=== PATIENT | female | born 1950 | race Asian ===

== ENCOUNTER 2017-03-02 20:08 | Emergency (ER) | payer MEDICAID ==
[2017-03-02 20:20] VITALS: RESP 16
--- NOTE | 2017-03-02 20:31 | EDPHY ---
H & P Stated Complaint: R sided numbness episode yesterday and 3 weeks ago. Time Seen by Provider: 03/02/17 20:14 HPI/ROS: This patient presents by private vehicle with her daughter who translates and explains that patient had right-sided numbness arms leg and face yesterday for 10 minutes at rest that has since resolved. She had a similar episode 3-4 weeks ago the last few minutes and resolved without intervention. The patient denies any other neurological symptoms otherwise feels well. Prior to a month ago she never had episodes of numbness before. She denies any other associated neurologic symptoms or other complaints. ROS: Constitutional: No fevers or chills. HEENT: No recent URI symptoms. Neuro: No headaches. No visual changes. No focal weakness. No difficulty speaking. No confusion. Pulmonary: No cough shortness of breath Cardiovascular: No chest pain or heart palpitations GI: No abdominal pain nausea or vomiting : No symptoms Integumentary: No skin complaints Endocrine: No complaints Complete review of symptoms is otherwise negative. Source: Patient, Family Exam Limitations: Language barrier (Patient's daughter translates Cantonese ) - Personal History Current Tetanus Diphtheria and Acellular Pertussis (TDAP): Yes - Medical/Surgical History PMH: Hypertension Hx Asthma: No Hx Chronic Respiratory Disease: No Hx Diabetes: No Hx Cardiac Disease: Yes Hx Renal Disease: No Hx Cirrhosis: No Hx Alcoholism: No Hx HIV/AIDS: No Hx Splenectomy or Spleen Trauma: No Other PMH: HTN, high cholesterol - Family History Significant Family History: No pertinent family hx - Social History Smoking Status: Never smoked Alcohol Use: None Drug Use: None - Physical Exam Exam: Physical exam: Vital signs are normal General: Patient is in no acute distress. HEENT: Is no external evidence of trauma on exam. Nose atraumatic. Ears: Clear bilaterally with no hemotympanum. Oropharynx: No dental trauma or malocclusion. No intraoral lacerations. Eyes: Pupils are equal and reactive to light. Extraocular motions are intact. Optic fundi: Clear with no papilledema or hemorrhage. Neck: Trachea is midline with no stridor. The patient has no midline neck tenderness and retains a full range of motion without increase in pain. Lungs: Clear to auscultation bilaterally Cardiac: Regular rate and rhythm no murmur gallop or rub. No carotid bruits are appreciated. Chest: Nontender. Abdomen: Soft nontender no organomegaly Back: Nontender Extremities: Atraumatic Neuro: GCS of 15. Cranial nerves II through XII intact. Cerebellar exam is normal as judged by symmetric rapid hand movements bilaterally. No pronator drift. No sensory or motor deficits are appreciated. NIH stroke scale of 0 Initial differential diagnosis: [employer] lesion, TIA, stroke, demyelinating disease , electrolyte disorder, anxiety, thyroid disease Constitutional: Initial Vital Signs Temperature (C) 36.7 C 03/02/17 20:18 Heart Rate 92 03/02/17 20:18 Respiratory Rate 16 03/02/17 20:18 Blood Pressure 157/83 H 03/02/17 20:18 O2 Sat (%) 96 03/02/17 20:18 O2 Delivery Mode Room Air Allergies/Adverse Reactions: No Known Allergies Allergy (Unverified 03/02/17 20:17) Home Medications: Medication Instructions Recorded Bp Med 03/02/17 Cholesterol Med 03/02/17 Medical Decision Making - Diagnostics EKG Interpretation: 12 lead EKG performed at 8:29 p.m. Indication numbness tingling, rule out cardiac dysrhythmia or other abnormalities Sinus rhythm at 76 Intervals: Normal throughout [place]: Normal throughout ST segments: Normal throughout Overall assessment normal EKG. Please refer to trace master for complete read. ED Course/Re-evaluation: Patient remained stable here without any active neuro symptoms. I spoke with Dr. Kareem Champion from [facility] in consult and he feels that since the patient had 2 episodes of right arm and leg numbness within a month and has history of hypertension and dyslipidemia, that she warrants admission and acute workup of TIA. I explained TIA and the plan in detail to the patient via her daughter translating and the patient refuses admission. She signed the AMA form declining admission and acute w/u understanding the risk of stroke and in delaying this workup. I explained the importance of close follow-up to complete a TIA workup including echocardiogram, & MRI and other possible studies as deemed by her care aide or neurologist. The pt's daughter will call her mother's primary care physician to facilitate this this week, or if unable to get in this week, she will call our outpatient on-call physician to arrange closer f/u (number provided) At the time of discharge, Mrs Serrano remains asymptomatic. She will continue her current medications including baby aspirin with close follow-up as described above. She understands the need to return emergency department if she has any significant recurrence of neuro symptoms prior to completing her workup as an outpatient. - Data Points Laboratory Results: Laboratory Results 03/02/17 20:40 03/02/17 20:40 Departure - Departure Disposition: Against Medical Advice Clinical Impression: TIA (transient ischemic attack) Condition: Good Instructions: Transient Ischemic Attack (ED) Additional Instructions: Diagnosis: Transient ischemic attack Plan: We suggested admission to the hospital for an MRI of the brain and an echocardiogram of the heart for further evaluation. You declined this admission. You should contact your primary care physician or the primary care physician listed below to arrange close follow-up appointment for an MRI of your brain and for a echocardiogram of her heart. Go to the emergency department for any significant recurrence of symptoms. Continue current medications and continue taking a baby aspirin each day. Referrals: NONE *PRIMARY CARE P,. [Primary Care Provider] - As per Instructions Kendell Soto MD [Medical Doctor] - As per Instructions
--- NOTE | 2017-03-02 20:31 | CPEKG ---
Heart Rate: 76 RR Interval: 789 P-R Interval: 164 QRSD Interval: 92 QT Interval: 396 QTC Interval: 446 P [place]: 58 QRS [place]: 49 T Wave [place]: 53 EKG Severity - NORMAL ECG - EKG Impression: SINUS RHYTHM Electronically Signed By: Petr Garcia 02-Mar-2017 20:57:16
[2017-03-02 20:46] LABS: % IMMATURE GRANULYOCYTES 0.1 % (0.0-1.1); ABSOLUTE IMMATURE GRANULOCYTES 0.01 10^3/uL (0.00-0.10); ADD DIFF? NO; ADD MORPH? NO; ADD SCAN? NO; ATYPICAL LYMPHOCYTE FLAG 0 (0-99); FRAGMENT RBC FLAG 0 (0-99); HEMATOCRIT 38.5 % (38.0-47.0); HEMOGLOBIN 12.7 g/dL (12.6-16.3); LEFT SHIFT FLG 0 (0-99); LIPEMIA HEMOLYSIS FLAG 80 (0-99); MEAN CELL VOLUME 87.9 fL (81.5-99.8); MEAN PLATELET VOLUME 9.5 fL (8.7-11.7); PLATELET CLUMPS FLAG 0 (0-99); PLATELET COUNT 209 10^3/uL (150-400); RED BLOOD CELL COUNT 4.38 10^6/uL (4.18-5.33); RED CELL DISTRIBUTION WIDTH 13.2 % (11.5-15.2)
[2017-03-02 20:56] LABS: APTT 31.1 SEC (23.0-38.0); PROTIME(PATIENT) 12.9 SEC (12.0-15.0)
[2017-03-02 20:57] LABS: ANION GAP 10 mEq/L (8-16); CALCIUM 9.2 mg/dL (8.5-10.4); CARBON DIOXIDE 23 mEq/l (22-31); CHLORIDE 107 mEq/L (97-110); CREATININE 0.8 mg/dL (0.6-1.0); GLOMERULAR FILTRATION RATE > 60; GLUCOSE 91 mg/dL (70-100); POTASSIUM 3.8 mEq/L (3.5-5.2); SODIUM 140 mEq/L (134-144)
[2017-03-02 21:43] VITALS: BP 129/89; PULSE 78; TEMP 97.5; O2SAT 94
== END 2017-03-02 21:50 | disposition left against medical advice (07) ==
LOC: CED 20:08
DX: G45.9 Transient cerebral ischemic attack, unspecified (principal); I10 Essential (primary) hypertension
CPT/HCPCS: 70450-PO; 80048-PO; 82947-QW; 84443-PO; 85025-PO; 85610-PO; 85730-PO